=== PATIENT | female | born 1955 | race Caucasian/White ===

== ENCOUNTER → 2020-08-09 | Day surgery (SDC) | payer MEDICARE, SELFPAY ==
[2020-08-05 10:04] LABS: BASOPHILS % 0.6 % (0.0-1.0); EOSINOPHILS # (AUTO) 0.3 (0.0-0.4); HEMATOCRIT 42.6 % (34.2-44.1); HEMOGLOBIN 13.7 g/dL (12.0-16.0); LYMPHOCYTES # (AUTO) 2.3 (1.0-3.2); LYMPHOCYTES % 34.9 % (18.0-39.1); MEAN CORPUSCULAR HEMOGLOBIN 30.4 pg (28-32); MEAN CORPUSCULAR HGB CONC 32.2 g/dL (31-35); MEAN CORPUSCULAR VOLUME 94.7 fL (81-99); MONOCYTES # (AUTO) 0.6 (0.2-0.8); MONOCYTES % 9.2 % (4.4-11.3); NEUTROPHILS # (AUTO) 3.2 (2.1-6.9); NEUTROPHILS % 50.4 % (38.7-80.0); PLATELET COUNT 194 x10e3/uL (140-360); RED CELL DISTRIBUTION WIDTH 13.9 % (11.7-14.4)
--- NOTE | 2020-08-05 11:08 | Diagnostic Imaging Report ---
Exam: CHEST 2 VIEWS Date: 08/05/2020 11:04 AM INDICATION: ^[id number] ^[id number] ^PRE OP Comparison: None FINDINGS: Lines/Tubes:None Lungs:The lungs are well inflated. No focal consolidation or pulmonary edema. Pleura:No pleural effusion. No pneumothorax. Heart/Mediastinum:Cardiomediastinal silhouette is mildly enlarged. Trachea projects midline. Bones/Soft Tissues: No acute osseous abnormality. Mild multilevel degenerative changes of the spine are noted. Upper abdomen: Unremarkable. IMPRESSION: Mild cardiomegaly. Negative for acute intrathoracic process. Signed by: Emerson Jacobsen MD on 08/05/2020 11:05 AM
[~2020-08-09] MED LIST: ACETAMINOPHEN 1000 MG/100 ML 100 ML IV ONE; AMLODIPINE BESYL5 MG PO; BUPIVACAINE 0.25% 30ML SDV INJ ONE; CLONIDINE HCL0.1 MG PO; DEXAMETHASONE SOD PHOS INJ 4 MG/ML VIAL ONE; FENTANYL CITRATE/PF 100MCG/2 ML INJ ONE; LEVOFLOXACIN 500MG/D5W 100ML 100 ML IV ONE; LIDOCAINE HCL (LTA) 4 ML SOLN ONE; LIDOCAINE HCL 2% JELLY 5 ML TUBE ONE; LIDOCAINE HCL 2% LOCAL INJ 5 ML SDV VIAL INJ ONE; LOSARTAN POTASS25 MG PO; METOCLOPRAMIDE HCL 10 MG/2ML VIAL ONE; MIDAZOLAM HCL 2 MG/2 ML VIAL ONE; MULTIVITAMINS1 EAC7 PO; ONDANSETRON HCL INJ 2MG/ML 2ML 2 MG/ML VIAL ONE; PROMETHAZINE HCL (IM) 25 MG/ML VIAL IM ONE; PROPOFOL IV EMULSION 10 MG/ML 20 ML VIAL ONE; ROCURONIUM BROMIDE 10 MG/ML 5ML VIAL IV ONE; SCOPOLAMINE 1.5 MG PATCH ONE; SEVOFLURANE INHAL SOLN 250 ML PEN BTL ONE; TURMERIC 500 M1 EACH PO
--- NOTE | 2020-08-09 11:19 | Operative Report ---
DATE OF PROCEDURE: 08/09/2020 SURGEON: Dakota Dominique MD PREOPERATIVE DIAGNOSES: 1. Esophagitis. 2. Nausea, vomiting. 3. Reflux disease. 4. Slipped lap band. 5. Gastric outlet obstruction. 6. Cholecystitis. POSTOPERATIVE DIAGNOSES: 1. Esophagitis. 2. Nausea, vomiting. 3. Reflux disease. 4. Slipped lap band. 5. Gastric outlet obstruction. 6. Cholecystitis. PREOPERATIVE INDICATION: 1. Remove lap band causing multiple upper GI complications. 2. Treat biliary disease. PROCEDURES: 1. Laparoscopic removal of adjustable gastric band with subcutaneous port. 2. Laparoscopic cholecystectomy. ANESTHESIA: General. HIGH DENSITY PRESS OPERATOR: Campbell Haile, surgical instrument maker (needed due to complexity of case). FLUIDS: 1 L crystalloid ESTIMATED BLOOD LOSS: 20 mL. DRAINS: None. COMPLICATIONS: None. SPECIMENS: 1. Subcutaneous port. 2. Adjustable gastric band with catheter. 3. Gallbladder. GRAFTS: None. FINDINGS: 1. Inflamed gallbladder. 2. Intact lap band. PROCEDURE IN DETAIL: The patient was brought to the operating room and was intubated under general endotracheal anesthesia. She was sterilely prepped and draped in the usual fashion. A preprocedure pause was performed identifying the patient, use of perioperative antibiotics, intended procedure, and staff surgeon. Access was gained via a 5 mm left subcostal incision using a Veress needle. The abdomen was insufflated. Three additional trocars were placed in the standard positions. I was able to identify the lap band in the distal portion of the fundus and circumferentially dissected this with a Harmonic scalpel. We then were able to cut the lap band portion and remove the intra-abdominal portion of the lap band through the right periumbilical port site along with a portion of the intra-abdominal catheter. Next, I turned my attention to the gallbladder and dissected out the cholecystohepatic triangle. I identified the cystic duct and cystic artery and obtained a critical view of dissection. The cystic artery was clipped and divided. The cystic duct was clipped twice on the stay side once on the specimen side and divided. The gallbladder was then excised off the gallbladder fossa using the L-hook electrocautery. The gallbladder was removed through the right periumbilical port site using the EndoCatch bag. We then verified hemostasis and closed the large port site with 0 Vicryl suture using a Brandon-Long technique. We then desufflated the abdomen and removed the trocars. Next, I turned my attention to the subcutaneous port. A transverse incision was made overlying the previous scar. Dissection was carried through the subcutaneous tissue down to the level of the subcutaneous port. The port was then circumferentially dissected and removed along with the remaining portion of the catheter. This removal left a defect in the anterior abdominal wall. The defect was closed with 0 Vicryl suture in a continuous fashion to repair the hernia. We then irrigated the wounds and closed the subcutaneous port site with 3-0 Vicryl and 4-0 Monocryl. The rest of the incision sites were closed with 4-0 Monocryl suture in a subcuticular fashion. Dermabond dressing was applied. A 0.25% bupivacaine was used both at the preperitoneal incision sites. The patient tolerated the procedure well. Type of wound is type 2, clean, and contaminated. All surgical sponge and instrument counts were correct. Dakota Dominique MD Swapna/MODL /[id number]
[2020-08-09 11:55] VITALS: BP 102/54
== END | disposition home or self-care (01) ==
LOC: OR 06:52 → EDBD 09:30
PROVIDERS: ATTEND Surgery
DX: K80.10 Calculus of gallbladder with chronic cholecystitis without obstruction (principal); T85.898A Other specified complication of other internal prosthetic devices, implants and grafts, initial encounter; K20.90 Esophagitis, unspecified without bleeding; K21.9 Gastro-esophageal reflux disease without esophagitis; K31.1 Adult hypertrophic pyloric stenosis; I10 Essential (primary) hypertension; Z88.0 Allergy status to penicillin; Y83.8 Other surgical procedures as the cause of abnormal reaction of the patient, or of later complication, without mention of misadventure at the time of the procedure; Z01.810 Encounter for preprocedural cardiovascular examination; Z01.812 Encounter for preprocedural laboratory examination; Z01.818 Encounter for other preprocedural examination; Z20.828 Contact with and (suspected) exposure to other viral communicable diseases
CPT/HCPCS: 36415; 43774; 47562; 71046; 85025; 88304; 93005; J0131; J1100; J1956; J2001 ×2; J2250; J2405; J2550; J2704; J2765; J3010; U0002